=== PATIENT | male | born 1995 | race Caucasian/White ===

== ENCOUNTER 2016-04-21 21:48 | Emergency (ER) | payer SELFPAY ==
[2016-04-21] MEDS ORDERED: PREDNISONE 20 MG TABLET ONE (23:15)
== END 2016-04-21 22:03 | disposition home or self-care (01) ==
LOC: ED 21:48
DX: J11.1 Influenza due to unidentified influenza virus with other respiratory manifestations (principal); L23.9 Allergic contact dermatitis, unspecified cause
CPT/HCPCS: 99283 ×2; J7512